=== PATIENT | female | born 1995 | race Two or more races ===

== ENCOUNTER 2017-02-07 18:18 | Inpatient (IN) | payer BC ==
[~2017-02-07] VITALS: Ht 157.5 cm; Wt 78.0 kg
[2017-02-07] MEDS ORDERED: MORPHINE SULFATE 4 MG/ML DISP.SYRIN. IV ONE (19:30)
[2017-02-07] MEDS ORDERED: KETOROLAC TROMETHAMINE 30 MG/ML INJ. IV ONE (19:30)
[2017-02-07 19:58] LABS: BASO # 0.1 x10^3/uL (0.0-0.2); BASO % 0 % (0-3); EOS % 1 % (0-3); HEMATOCRIT 41.8 % (36.0-47.0); HEMOGLOBIN 13.4 g/dL (12.0-15.5); LYMPH % 12 % (24-48); MEAN CORPUSCULAR HEMOGLOBIN 27 pg (25-35); MEAN CORPUSCULAR HGB CONC 32 g/dL (31-37); MEAN CORPUSCULAR VOLUME 85 fL (79-100); MONO % 7 % (0-9); NEUT % 80 % (31-73); PLATELET COUNT 251 x10^3/uL (140-400); RED BLOOD COUNT 4.93 x10^6/uL (3.50-5.40); RED CELL DISTRIBUTION WIDTH 13.8 % (11.5-14.5); WHITE BLOOD COUNT 16.8 x10^3/uL (4.0-11.0)
[2017-02-07] MEDS ORDERED: CLINDAMYCIN 600MG PREMIX 50 ML IV ONE (20:00)
[2017-02-07 20:16] LABS: CALCIUM 9.4 mg/dL (8.5-10.1); CREATININE 0.6 mg/dL (0.6-1.0); GFR 123.9; POTASSIUM 3.7 mmol/L (3.5-5.1)
[2017-02-07 20:23] LABS: ALBUMIN/GLOBULIN RATIO 0.9 (1.0-1.7); TOTAL BILIRUBIN 0.4 mg/dL (0.2-1.0); TOTAL PROTEIN 8.4 g/dL (6.4-8.2)
[2017-02-07 20:39] LABS: % EOS 1 % (0-5)
[2017-02-07 20:41] LABS: ANISOCYTOSIS SLIGHT; OVALOCYTES FEW; PLT ESTIMATE ADEQUATE (ADEQUATE); POLYCHROMASIA SLIGHT
[2017-02-07] MEDS ORDERED: MORPHINE SULFATE 4 MG/ML DISP.SYRIN. IV/SQ PRN (20:45)
[2017-02-07] MEDS ORDERED: ONDANSETRON PF 4 MG/2 ML VIAL. IV PRN ×2 (20:45→23:30)
--- NOTE | 2017-02-07 20:47 | PHYS DOC ---
Past Medical History Past Medical History: Other Additional Past Medical Histor: SPORTS INDUCED ASTHMA Past Surgical History: No Surgical History Alcohol Use: Occasionally Drug Use: None Adult General Chief Complaint Chief Complaint: ABSCESS HPI HPI Patient is a 21 year old female presents emergency department stating that she has having tenderness on her right breast that started yesterday. She states today the area has become more sensitive. She denies any drainage or discharge. She does state there is areas that her heart on the breast with a large amount of redness. Patient has not taken anything for pain or discomfort. She denies any fever although her temperature here in the emergency department is 100.2. She denies any nausea or vomiting. Review of Systems Review of Systems Constitutional: Denies fever or chills [] Eyes: Denies change in visual acuity, redness, or eye pain [] HENT: Denies nasal congestion or sore throat [] Respiratory: Denies cough or shortness of breath [] Cardiovascular: No additional information not addressed in HPI [] GI: Denies abdominal pain, nausea, vomiting, bloody stools or diarrhea [] : Denies dysuria or hematuria [] Musculoskeletal: Denies back pain or joint pain [] Integument: Denies rash or skin lesions. Right breast redness and tenderness Neurologic: Denies headache, focal weakness or sensory changes [] Current Medications Current Medications Current Medications Medications (Trade) Dose Ordered Sig/Yonathan Start Time Stop Time Status Last Admin Dose Admin Clindamycin Phosphate (Cleocin 600 Mg Premix) 50 ml @ 100 mls/hr Q8HRS 02/07/17 22:00 UNV Ketorolac Tromethamine (Toradol) 30 mg 1X ONCE 02/07/17 19:30 02/07/17 19:31 DC 02/07/17 19:56 30 MG Morphine Sulfate 4 mg PRN Q15MIN PRN 02/07/17 20:45 02/08/17 20:44 Morphine Sulfate 4 mg 4 mg PRN Q2HR PRN 02/07/17 20:45 02/08/17 20:44 Ondansetron HCl (Zofran) 4 mg PRN Q8HRS PRN 02/07/17 20:45 02/08/17 20:44 Sodium Chloride 1,000 ml @ 125 mls/hr Q8H 02/07/17 20:38 02/08/17 20:37 Allergies Allergies Allergies Coded Allergies Type Severity Reaction Last Updated Verified No Known Drug Allergies 02/07/17 No Physical Exam Physical Exam Constitutional: Well developed, well nourished, no acute distress, non-toxic appearance. [] HENT: Normocephalic, atraumatic, bilateral external ears normal, oropharynx moist, no oral exudates, nose normal. [] Eyes: PERRLA, EOMI, conjunctiva normal, no discharge. [] Neck: Normal range of motion, no tenderness, supple, no stridor. [] Cardiovascular:Heart rate regular rhythm, no murmur [] Lungs & Thorax: Bilateral breath sounds clear to auscultation [] Skin: Warm, dry, no erythema, no rash. Right breast tenderness with redness noted on the outer part of the breast area. Tenderness with no induration noted on the medial side of the right medial areola. Back: No tenderness Extremities: No tenderness, no cyanosis, no clubbing, ROM intact, no edema. [] Neurologic: Alert and oriented X 3, normal motor function, normal sensory function, no focal deficits noted. [] Psychologic: Affect normal, judgement normal, mood normal. [] Current Patient Data Vital Signs Vital Signs Date Time Temp Pulse Resp B/P Pulse Ox O2 Delivery O2 Flow Rate FiO2 02/07/17 18:40 100.2 89 24 117/70 100 Room Air 100.2 Lab Values Laboratory Tests Test 02/07/17 18:33 02/07/17 19:40 02/07/17 19:45 POC Urine HCG, Qualitative Hcg negative (Negative) C-Reactive Protein, Quantitative 68.0mg/L (0-3.3) H White Blood Count 16.8x10^3/uL (4.0-11.0) H Red Blood Count 4.93x10^6/uL (3.50-5.40) Hemoglobin 13.4g/dL (12.0-15.5) Hematocrit 41.8% (36.0-47.0) Mean Corpuscular Volume 85fL (79-100) Mean Corpuscular Hemoglobin 27pg (25-35) Mean Corpuscular Hemoglobin Concent 32g/dL (31-37) Red Cell Distribution Width 13.8% (11.5-14.5) Platelet Count 251x10^3/uL (140-400) Neutrophils (%) (Auto) 80% (31-73) H Lymphocytes (%) (Auto) 12% (24-48) L Monocytes (%) (Auto) 7% (0-9) Eosinophils (%) (Auto) 1% (0-3) Basophils (%) (Auto) 0% (0-3) Neutrophils # (Auto) 13.4x10^3uL (1.8-7.7) H Lymphocytes # (Auto) 2.0x10^3/uL (1.0-4.8) Monocytes # (Auto) 1.2x10^3/uL (0.0-1.1) H Eosinophils # (Auto) 0.1x10^3/uL (0.0-0.7) Basophils # (Auto) 0.1x10^3/uL (0.0-0.2) Segmented Neutrophils % 80% (35-66) H Lymphocytes % 10% (24-48) L Monocytes % 6% (0-10) Eosinophils % 1% (0-5) Metamyelocytes % 3% (0-0) H Platelet Estimate Adequate (ADEQUATE) Polychromasia Slight Anisocytosis Slight Ovalocytes Few Sodium Level 139mmol/L (136-145) Potassium Level 3.7mmol/L (3.5-5.1) Chloride Level 101mmol/L (98-107) Carbon Dioxide Level 26mmol/L (21-32) Anion Gap 12 (6-14) Blood Urea Nitrogen 7mg/dL (7-20) Creatinine 0.6mg/dL (0.6-1.0) Estimated GFR (Cockcroft-Gault) 123.9 BUN/Creatinine Ratio 12 (6-20) Glucose Level 95mg/dL (70-99) Calcium Level 9.4mg/dL (8.5-10.1) Total Bilirubin 0.4mg/dL (0.2-1.0) Aspartate Amino Transferase (AST) 57U/L (15-37) H Alanine Aminotransferase (ALT) 72U/L (14-59) H Alkaline Phosphatase 109U/L (46-116) Total Protein 8.4g/dL (6.4-8.2) H Albumin 4.0g/dL (3.4-5.0) Albumin/Globulin Ratio 0.9 (1.0-1.7) L Laboratory Tests 02/07/17 19:45 Laboratory Tests 02/07/17 19:45 EKG EKG [] Radiology/Procedures Radiology/Procedures [] Course & Med Decision Making Course & Med Decision Making Pertinent Labs and Imaging studies reviewed. (See chart for details) She was also noted to have nipple rings in which there is no drainage or discharge noted from the site. [address] Pham in regards to patient's admission. He has requested to lab to be obtained ESR and CRP. Does have been added to the labs that are in the lab. Patient will be admitted into the hospital surgery consult has been obtained. Orders have been written. She is aware of admission. She has received one dose of clindamycin here in the emergency department. Dr. Vero luz is aware of this. Patient will continue with clindamycin upon admission. She has been provided with morphine for pain and discomfort. She still continues to have pain at this time. She'll be provided more morphine before being sent to the floor. [] Dragon Disclaimer Dragon Disclaimer This electronic medical record was generated, in whole or in part, using a voice recognition dictation system. Departure Departure Impression: Primary Impression: Cellulitis and abscess of other specified site Disposition: ADMITTED INPATIENT Admitting Physician: Lauro Pham Referrals: NO PCP (PCP) ANT PARKINSON APRN Feb 07, 2017 20:47
[2017-02-07] MEDS: IV NORMAL SALINE 1000ML BAG 1,000 ML IV SCH (21:18)
--- NOTE | 2017-02-07 21:36 | PDOC1 ---
History and Physical Past Medical History Past Medical History sports induce asthma Social History Smoke: No ALCOHOL: none Drugs: None Current Problem List Problem List Problems Medical Problems: (1) Cellulitis and abscess of other specified site Status: Acute Current Medications Current Medications Current Medications Medications (Trade) Dose Ordered Sig/Yonathan Start Time Stop Time Status Last Admin Dose Admin Clindamycin Phosphate (Cleocin 600 Mg Premix) 50 ml @ 100 mls/hr Q8HRS 02/08/17 06:00 Ketorolac Tromethamine (Toradol) 30 mg 1X ONCE 02/07/17 19:30 02/07/17 19:31 DC 02/07/17 19:56 30 MG Morphine Sulfate 4 mg PRN Q15MIN PRN 02/07/17 20:45 02/08/17 20:44 02/07/17 21:17 4 MG Morphine Sulfate 4 mg 4 mg PRN Q2HR PRN 02/07/17 20:45 02/08/17 20:44 Ondansetron HCl (Zofran) 4 mg PRN Q8HRS PRN 02/07/17 20:45 02/08/17 20:44 02/07/17 21:17 4 MG Sodium Chloride 1,000 ml @ 125 mls/hr Q8H 02/07/17 20:38 02/08/17 20:37 02/07/17 21:18 125 MLS/HR Allergies Allergies Allergies Coded Allergies Type Severity Reaction Last Updated Verified No Known Drug Allergies 02/07/17 No ROS Review of System CONSTITUTIONAL: Pain and swelling of righ breast, EYES: No recent changes SKIN: No rash or itching CARDIOVASCULAR: No chest pain, syncope, palpitations, or edema RESPIRATORY: No SOB or cough GASTROINTESTINAL: No nausea, vomiting or abdominal pain NEUROLOGICAL: No headaches or weakness ENDOCRINE: No cold or heat intolerance GENITOURINARY: No urgency or frequency of urination MUSCULOSKELETAL: No back pain or joint pain LYMPHATICS: No enlarged lymph nodes PSYCHIATRIC: No anxiety or depression Physical Exam Physical Exam GEN.: No apparent distress. Alert and oriented. HEENT: Head is normocephalic, atraumatic NECK: Supple. LUNGS: Clear to auscultation. HEART: RRR, S1, S2 present. Peripheral pulses intact ABDOMEN: Soft, nontender. Positive bowel sounds. EXTREMITIES: Without any cyanosis. NEUROLOGIC: Normal speech, normal tone PSYCHIATRIC: Normal affect, normal mood. SKIN: Right breast, upper Quad Areola is tender, erythematous, 3-4 cm Vitals Vitals Vital Signs Date Time Temp Pulse Resp B/P Pulse Ox O2 Delivery O2 Flow Rate FiO2 02/07/17 18:40 100.2 89 24 117/70 100 Room Air 100.2 Labs Labs Laboratory Tests Test 02/07/17 18:33 02/07/17 19:40 02/07/17 19:45 Bedside Urine HCG, Qualitative Hcg negative (Negative) C-Reactive Protein, Quantitative 68.0mg/L (0-3.3) White Blood Count 16.8x10^3/uL (4.0-11.0) Red Blood Count 4.93x10^6/uL (3.50-5.40) Hemoglobin 13.4g/dL (12.0-15.5) Hematocrit 41.8% (36.0-47.0) Mean Corpuscular Volume 85fL (79-100) Mean Corpuscular Hemoglobin 27pg (25-35) Mean Corpuscular Hemoglobin Concent 32g/dL (31-37) Red Cell Distribution Width 13.8% (11.5-14.5) Platelet Count 251x10^3/uL (140-400) Neutrophils (%) (Auto) 80% (31-73) Lymphocytes (%) (Auto) 12% (24-48) Monocytes (%) (Auto) 7% (0-9) Eosinophils (%) (Auto) 1% (0-3) Basophils (%) (Auto) 0% (0-3) Neutrophils # (Auto) 13.4x10^3uL (1.8-7.7) Lymphocytes # (Auto) 2.0x10^3/uL (1.0-4.8) Monocytes # (Auto) 1.2x10^3/uL (0.0-1.1) Eosinophils # (Auto) 0.1x10^3/uL (0.0-0.7) Basophils # (Auto) 0.1x10^3/uL (0.0-0.2) Segmented Neutrophils % 80% (35-66) Lymphocytes % 10% (24-48) Monocytes % 6% (0-10) Eosinophils % 1% (0-5) Metamyelocytes % 3% (0-0) Platelet Estimate Adequate (ADEQUATE) Polychromasia Slight Anisocytosis Slight Ovalocytes Few Sodium Level 139mmol/L (136-145) Potassium Level 3.7mmol/L (3.5-5.1) Chloride Level 101mmol/L (98-107) Carbon Dioxide Level 26mmol/L (21-32) Anion Gap 12 (6-14) Blood Urea Nitrogen 7mg/dL (7-20) Creatinine 0.6mg/dL (0.6-1.0) Estimated GFR (Cockcroft-Gault) 123.9 BUN/Creatinine Ratio 12 (6-20) Glucose Level 95mg/dL (70-99) Calcium Level 9.4mg/dL (8.5-10.1) Total Bilirubin 0.4mg/dL (0.2-1.0) Aspartate Amino Transf (AST/SGOT) 57U/L (15-37) Alanine Aminotransferase (ALT/SGPT) 72U/L (14-59) Alkaline Phosphatase 109U/L (46-116) Total Protein 8.4g/dL (6.4-8.2) Albumin 4.0g/dL (3.4-5.0) Albumin/Globulin Ratio 0.9 (1.0-1.7) Laboratory Tests Test 02/07/17 18:33 02/07/17 19:40 02/07/17 19:45 Bedside Urine HCG, Qualitative Hcg negative (Negative) C-Reactive Protein, Quantitative 68.0mg/L (0-3.3) White Blood Count 16.8x10^3/uL (4.0-11.0) Red Blood Count 4.93x10^6/uL (3.50-5.40) Hemoglobin 13.4g/dL (12.0-15.5) Hematocrit 41.8% (36.0-47.0) Mean Corpuscular Volume 85fL (79-100) Mean Corpuscular Hemoglobin 27pg (25-35) Mean Corpuscular Hemoglobin Concent 32g/dL (31-37) Red Cell Distribution Width 13.8% (11.5-14.5) Platelet Count 251x10^3/uL (140-400) Neutrophils (%) (Auto) 80% (31-73) Lymphocytes (%) (Auto) 12% (24-48) Monocytes (%) (Auto) 7% (0-9) Eosinophils (%) (Auto) 1% (0-3) Basophils (%) (Auto) 0% (0-3) Neutrophils # (Auto) 13.4x10^3uL (1.8-7.7) Lymphocytes # (Auto) 2.0x10^3/uL (1.0-4.8) Monocytes # (Auto) 1.2x10^3/uL (0.0-1.1) Eosinophils # (Auto) 0.1x10^3/uL (0.0-0.7) Basophils # (Auto) 0.1x10^3/uL (0.0-0.2) Segmented Neutrophils % 80% (35-66) Lymphocytes % 10% (24-48) Monocytes % 6% (0-10) Eosinophils % 1% (0-5) Metamyelocytes % 3% (0-0) Platelet Estimate Adequate (ADEQUATE) Polychromasia Slight Anisocytosis Slight Ovalocytes Few Sodium Level 139mmol/L (136-145) Potassium Level 3.7mmol/L (3.5-5.1) Chloride Level 101mmol/L (98-107) Carbon Dioxide Level 26mmol/L (21-32) Anion Gap 12 (6-14) Blood Urea Nitrogen 7mg/dL (7-20) Creatinine 0.6mg/dL (0.6-1.0) Estimated GFR (Cockcroft-Gault) 123.9 BUN/Creatinine Ratio 12 (6-20) Glucose Level 95mg/dL (70-99) Calcium Level 9.4mg/dL (8.5-10.1) Total Bilirubin 0.4mg/dL (0.2-1.0) Aspartate Amino Transf (AST/SGOT) 57U/L (15-37) Alanine Aminotransferase (ALT/SGPT) 72U/L (14-59) Alkaline Phosphatase 109U/L (46-116) Total Protein 8.4g/dL (6.4-8.2) Albumin 4.0g/dL (3.4-5.0) Albumin/Globulin Ratio 0.9 (1.0-1.7) VTE Prophylaxis Ordered VTE Prophylaxis Devices: No VTE Pharmacological Prophylaxi: No JONNIE GENAO MD Feb 07, 2017 21:36
[2017-02-07 23:00] VITALS: BP 106/63
[2017-02-07] MEDS: MORPHINE SULFATE 4 MG/ML DISP.SYRIN. IV PRN (23:18)
--- NOTE | 2017-02-07 23:20 | ACF ---
Admission Forms Criteria CELLULITIS Clinical Indications for Admission to Inpatient Care (Place 'X' for any and all applicable criteria): Admission is indicated for ANY ONE of the following(1)(2)(3)(4)(5): [ ]I. Limb-threatening infection [ ]II. High-risk comorbid condition as indicated by ANY ONE of the following: [ ]a) Uncontrolled diabetes (eg, HbA1c greater than 10% (0.1)) [ ]b) Cirrhosis [ ]c) Neutropenia [ ]d) Asplenia [ ]e) Immunosuppression [ ]f) Symptomatic heart failure [ ]III. Failure of outpatient therapy as indicated by ALL of the following: [ ]a) Progression or no improvement after adequate trial (minimum of 48 hours, with longer period for stable lower extremity infection) [ ]b) Adequate antibiotic regimen as indicated by use of ANY ONE of the following: [ ]i) First-generation cephalosporin (e.g., cephalexin) [ ]ii) Antistaphylococcal penicillin (e.g., dicloxacillin) [ ]iii) Penicillin-allergic patient regimen (clindamycin, extended-spectrum fluoroquinolone, or doxycycline) [ ]iv) Resistant organism (eg, methicillin-resistant Staphylococcus aureus) regimen (6) [ ]c) Outpatient intravenous therapy regimen is not appropriate due to ANY ONE of the following. (7)(8)(9)(10): [ ]i) It was tried and was not successful (eg, progression of infection). [ ]ii) It is not available or cannot be arranged in a clinically appropriate time frame (e.g., the next day). [ ]iii) Clinical presentation (eg, acuity of infection, rapidity of progression, confirmed or suspected bacteremia) is judged to require ALL of the following: [ ]1) Immediate initiation of intravenous therapy ( eg, cannot wait for next day) [ ]2) Intensity of patient monitoring and observation (eg, vital sign measurement, checks for infection progression) that cannot be provided at other than inpatient level of care [ ]IV. Mental status changes [ ]V. Bacteremia [ ]. Hemodynamic instability [ ]VII. Suspected necrotizing soft tissue infection (e.g., gas in tissue)(11)( 12) [ ]VIII. Orbital infection (13)(14) [ ]IX. Associated surgical procedure (e.g., abscess drainage, debridement) not amenable to outpatient, emergency department, or observation care [ ]X. Cutaneous gangrene [ ]XI. High fever (temperature greater than 39.5 degrees C (103.1 degrees F) (oral)) not responsive to outpatient, emergency department, or observation care therapy [X]XIII. Inpatient admission required rather than observation care (Also use Cellulitis: Observation Care as appropriate) because of ANY ONE of the following : [ ]a) Periorbital or perineal infection that is severe or worsening [ ]b) Severe pain requiring acute inpatient management [ ]c) IV fluid to replace significant ongoing (e.g., for over 24 hours) losses (greater than 3L/m2 per day) [ ]d) Compartment syndrome monitoring (17) [ ]e) Strict or protective (eg, laminar flow) isolation [ ]f) Urgent debridement or skin grafting [ ]g) Bone or joint debridement [ ]h) Immediate inpatient surgery [X]i) Other condition, treatment or monitoring requiring inpatient admission Extended stay beyond goal length of stay may be needed for (1)(18): [ ]a) Necrotizing soft tissue infection or fasciitis [ ]b) Gram-negative infection [ ]c) Methicillin-resistant Staphylococcal aureus (MRSA) infection [ ]d) Peripheral venous insufficiency with cellulitis [ ]e) Extensive edema [ ]f) Sepsis or continued Hemodynamic instability [ ]g) Continued high fever or mental status change [ ]h) Bacteremia [ ]i) Active serious comorbid conditions ( eg, heart failure, renal insufficiency) The original [email or web address] content created by [email or web address] has been revised. The portions of the content which have been revised are identified through the use of italic text or in bold, and [facility] has neither reviewed nor approved the modified material. All other unmodified content is copyright [facility] Please see references footnoted in the original [facility] edition 2016 Admission Criteria Met?: Yes PHYLICIA BENTLEY Feb 07, 2017 23:20
[2017-02-07] MEDS ORDERED: ACETAMINOPHEN 325 MG TABLET. PO PRN (23:30)
[2017-02-07] MEDS ORDERED: hydrALAZINE 20 MG/ML VIAL. IVP PRN (23:30)
[2017-02-07] MEDS ORDERED: ALBUTEROL SULFATE 2.5 MG/3 ML NEBU. NEB PRN (23:30)
[2017-02-08] MEDS: HYDROCODONE/APAP 5/325MG TABLET. PO PRN ×4 (00:54→20:31)
--- NOTE | 2017-02-08 01:45 | HP ---
ADMIT DATE: 02/07/2017 CHIEF COMPLAINT: Right breast pain. HISTORY OF PRESENT ILLNESS: A 21-year-old female patient with no significant medical history, who came to the ER with right breast pain and swelling, which started nearly for two days. Symptoms started yesterday morning, but this morning breast pain so high that she could not tolerate and which is very sensitive, also noted to have some erythema. Upon arrival to the ER, she has temperature spike around 100.2. She denies any discharge or trauma. She is not actively lactating. She is not breast feeding. She denies any prior history of surgeries on the breast. PAST MEDICAL HISTORY: asthma. FAMILY HISTORY: Unknown. PERSONAL HISTORY: No smoking, no alcohol, and no drug abuse. ALLERGIES: NKDA. REVIEW OF SYSTEMS: Please see my electronic H and P. PHYSICAL EXAMINATION: Please see my electronic H and P. LABORATORY FINDINGS: WBC 15.8, hemoglobin 13.4, MCV 85, and platelets 251. Segmented neutrophils ____ 40. Chemistry: Sodium is 139, potassium 3.7, chloride is 101, carbon dioxide 26, BUN 7, creatinine 0.6, and CRP 68. Urine test negative. ASSESSMENT AND PLAN: 1. Right breast outer quadrant areola abscess and cellulitis. The patient has been admitted for pain control and surgical consultation. We will continue IV clindamycin at this time with IV hydration. She is getting pain control with IV morphine. 2. General surgery consultation is placed for possible incision and drainage. 3. Monitor vitals. The patient continues to have temperature spikes, so we will order blood cultures. 4. Plan explained to the patient. JONNIE GENAO MD DR: NAM/jaycob JOB#: [id number] / [id number] JANN
[2017-02-08] MEDS: MORPHINE SULFATE 4 MG/ML DISP.SYRIN. IV PRN ×3 (02:28→08:02)
[2017-02-08 03:00] VITALS: BP 97/57
[2017-02-08] MEDS ORDERED: MORPHINE SULFATE 2 MG/ML DISP.SYRIN. IM ONE (05:00)
[2017-02-08] MEDS: CLINDAMYCIN 600MG PREMIX 50 ML IV SCH ×3 (05:25→21:29)
[2017-02-08] MEDS: IV NORMAL SALINE 1000ML BAG 1,000 ML IV SCH ×2 (05:25→12:38)
[2017-02-08 06:18] LABS: BASO % 0 % (0-3); EOS % 0 % (0-3); HEMATOCRIT 37.4 % (36.0-47.0); HEMOGLOBIN 12.2 g/dL (12.0-15.5); LYMPH % 21 % (24-48); MEAN CORPUSCULAR HEMOGLOBIN 27 pg (25-35); MEAN CORPUSCULAR HGB CONC 33 g/dL (31-37); MEAN CORPUSCULAR VOLUME 84 fL (79-100); MONO % 8 % (0-9); NEUT % 70 % (31-73); PLATELET COUNT 222 x10^3/uL (140-400); RED BLOOD COUNT 4.44 x10^6/uL (3.50-5.40); RED CELL DISTRIBUTION WIDTH 13.6 % (11.5-14.5); WHITE BLOOD COUNT 13.9 x10^3/uL (4.0-11.0)
[2017-02-08 06:32] LABS: CALCIUM 8.7 mg/dL (8.5-10.1); CREATININE 0.5 mg/dL (0.6-1.0); GFR 152.9
[2017-02-08 08:00] VITALS: BP 103/65
--- NOTE | 2017-02-08 08:40 | PDOC2 ---
CONSULT Date of Consult Date of Consult DATE: 02/08/17 TIME: 08:35 Reason for Consult Reason for Consult: Right breast pain and swelling Referring Physician Referring Physician: Vero Identification/Chief Complaint Chief Complaint Right breast pain Source Source: Patient History of Present Illness Reason for Visit: 21 yo female with 24 hour history of right breast pain, and swelling. Low grade fevers. Past Medical History Cardiovascular: No pertinent hx Pulmonary: Asthma GI: No pertinent hx Heme/Onc: No pertinent hx Hepatobiliary: No pertinent hx Psych: No pertinent hx Rheumatologic: No pertinent hx Infectious disease: No pertinent hx ENT: No pertinent hx Renal/: No pertinent hx Endocrine: No pertinent hx Dermatology: No pertinent hx Past Surgical History Past Surgical History: No pertinent history Family History Family History: No Significant Social History No ALCOHOL: none Drugs: None Current Problem List Problem List Problems Medical Problems: (1) Cellulitis and abscess of other specified site Status: Acute Current Medications Current Medications Current Medications Morphine Sulfate 4 mg 1X ONCE IV Last administered on 02/07/17 19:57; Start 02/07/17 at 19:30; Stop 02/07/17 at 19:31; Status DC Ketorolac Tromethamine 30 mg 30 mg 1X ONCE IV Last administered on 02/07/17 19:56; Start 02/07/17 at 19:30; Stop 02/07/17 at 19:31; Status DC Clindamycin Phosphate (Cleocin 600 Mg Premix) 50 ml @ 100 mls/hr 1X ONCE IV Last administered on 02/07/17 20:05; Start 02/07/17 at 20:00; Stop 02/07/17 at 20:29; Status DC Ondansetron HCl (Zofran) 4 mg PRN Q8HRS PRN IV NAUSEA/VOMITING Last administered on 02/07/17 21:17; Start 02/07/17 at 20:45; Stop 02/07/17 at 23:32 ; Status DC Morphine Sulfate 4 mg 4 mg PRN Q2HR PRN IV PAIN Last administered on 02/08/17 08:02; Start 02/07/17 at 20:45; Stop 02/08/17 at 20:44 Sodium Chloride 1,000 ml @ 125 mls/hr Q8H IV Last administered on 02/08/17 05: 25; Start 02/07/17 at 20:38; Stop 02/08/17 at 20:37 Clindamycin Phosphate (Cleocin 600 Mg Premix) 50 ml @ 100 mls/hr Q8HRS IV Last administered on 02/08/17 05:25; Start 02/08/17 at 06:00 Morphine Sulfate 4 mg PRN Q15MIN PRN IV/SQ PAIN GREATER THAN 3/10 Last administered on 02/07/17 21:17; Start 02/07/17 at 20:45; Stop 02/08/17 at 20:44 Acetaminophen (Tylenol) 325 mg PRN Q6HRS PRN PO MILD PAIN / TEMP; Start at 23:30 Acetaminophen/ Hydrocodone Bitart (Lortab 5/325) 1 tab PRN Q6HRS PRN PO MODERATE TO SEVERE PAIN Last administered on 02/08/17 00:54; Start 02/07/17 at 23:30 Hydralazine HCl (Apresoline) 10 mg PRN Q4HRS PRN IVP ELEVATED BP, SEE COMMENTS ; Start 02/07/17 at 23:30 Ondansetron HCl (Zofran) 4 mg PRN Q8HRS PRN IV NAUSEA/VOMITING; Start 02/07/17 at 23:30 Albuterol Sulfate (Ventolin Neb Soln) 2.5 mg PRN Q4HRS PRN NEB SHORTNESS OF BREATH; Start 02/07/17 at 23:30 Morphine Sulfate 1 mg 1X ONCE IM ; Start 02/08/17 at 05:00; Stop 02/08/17 at 05: 01; Status DC Allergies Allergies: Coded Allergies: No Known Drug Allergies (Unverified , 02/07/17) ROS Breast: Other (pain) Physical Exam General: Alert, Oriented X3, Cooperative, mild distress HEENT: Atraumatic, PERRLA, EOMI Lungs: Clear to auscultation, Normal air movement Heart: Regular rate, No murmurs Abdomen: Normal bowel sounds, Soft, No tenderness Extremities: No edema Skin: Other (right breast erythema TTP mass at the nipple with pierching) Psych/Mental Status: Mental status NL Vitals VITALS Vital Signs Date Time Temp Pulse Resp B/P Pulse Ox O2 Delivery O2 Flow Rate FiO2 02/08/17 08:02 96 Room Air 02/08/17 04:37 20 02/08/17 03:00 98.3 83 97/57 98.3 Labs Labs Laboratory Tests Test 02/07/17 18:33 02/07/17 19:40 02/07/17 19:45 02/08/17 05:20 Bedside Urine HCG, Qualitative Hcg negative (Negative) Erythrocyte Sedimentation Rate 40 (0-25) C-Reactive Protein, Quantitative 68.0mg/L (0-3.3) White Blood Count 16.8x10^3/uL (4.0-11.0) 13.9x10^3/uL (4.0-11.0) Red Blood Count 4.93x10^6/uL (3.50-5.40) 4.44x10^6/uL (3.50-5.40) Hemoglobin 13.4g/dL (12.0-15.5) 12.2g/dL (12.0-15.5) Hematocrit 41.8% (36.0-47.0) 37.4% (36.0-47.0) Mean Corpuscular Volume 85fL (79-100) 84fL (79-100) Mean Corpuscular Hemoglobin 27pg (25-35) 27pg (25-35) Mean Corpuscular Hemoglobin Concent 32g/dL (31-37) 33g/dL (31-37) Red Cell Distribution Width 13.8% (11.5-14.5) 13.6% (11.5-14.5) Platelet Count 251x10^3/uL (140-400) 222x10^3/uL (140-400) Neutrophils (%) (Auto) 80% (31-73) 70% (31-73) Lymphocytes (%) (Auto) 12% (24-48) 21% (24-48) Monocytes (%) (Auto) 7% (0-9) 8% (0-9) Eosinophils (%) (Auto) 1% (0-3) 0% (0-3) Basophils (%) (Auto) 0% (0-3) 0% (0-3) Neutrophils # (Auto) 13.4x10^3uL (1.8-7.7) 9.7x10^3uL (1.8-7.7) Lymphocytes # (Auto) 2.0x10^3/uL (1.0-4.8) 3.0x10^3/uL (1.0-4.8) Monocytes # (Auto) 1.2x10^3/uL (0.0-1.1) 1.1x10^3/uL (0.0-1.1) Eosinophils # (Auto) 0.1x10^3/uL (0.0-0.7) 0.1x10^3/uL (0.0-0.7) Basophils # (Auto) 0.1x10^3/uL (0.0-0.2) 0.0x10^3/uL (0.0-0.2) Segmented Neutrophils % 80% (35-66) Lymphocytes % 10% (24-48) Monocytes % 6% (0-10) Eosinophils % 1% (0-5) Metamyelocytes % 3% (0-0) Platelet Estimate Adequate (ADEQUATE) Polychromasia Slight Anisocytosis Slight Ovalocytes Few Sodium Level 139mmol/L (136-145) 142mmol/L (136-145) Potassium Level 3.7mmol/L (3.5-5.1) 4.0mmol/L (3.5-5.1) Chloride Level 101mmol/L (98-107) 106mmol/L (98-107) Carbon Dioxide Level 26mmol/L (21-32) 28mmol/L (21-32) Anion Gap 12 (6-14) 8 (6-14) Blood Urea Nitrogen 7mg/dL (7-20) 8mg/dL (7-20) Creatinine 0.6mg/dL (0.6-1.0) 0.5mg/dL (0.6-1.0) Estimated GFR (Cockcroft-Gault) 123.9 152.9 BUN/Creatinine Ratio 12 (6-20) Glucose Level 95mg/dL (70-99) 84mg/dL (70-99) Calcium Level 9.4mg/dL (8.5-10.1) 8.7mg/dL (8.5-10.1) Total Bilirubin 0.4mg/dL (0.2-1.0) Aspartate Amino Transf (AST/SGOT) 57U/L (15-37) Alanine Aminotransferase (ALT/SGPT) 72U/L (14-59) Alkaline Phosphatase 109U/L (46-116) Total Protein 8.4g/dL (6.4-8.2) Albumin 4.0g/dL (3.4-5.0) Albumin/Globulin Ratio 0.9 (1.0-1.7) Laboratory Tests Test 02/07/17 18:33 02/07/17 19:40 02/07/17 19:45 02/08/17 05:20 Bedside Urine HCG, Qualitative Hcg negative (Negative) Erythrocyte Sedimentation Rate 40 (0-25) C-Reactive Protein, Quantitative 68.0mg/L (0-3.3) White Blood Count 16.8x10^3/uL (4.0-11.0) 13.9x10^3/uL (4.0-11.0) Red Blood Count 4.93x10^6/uL (3.50-5.40) 4.44x10^6/uL (3.50-5.40) Hemoglobin 13.4g/dL (12.0-15.5) 12.2g/dL (12.0-15.5) Hematocrit 41.8% (36.0-47.0) 37.4% (36.0-47.0) Mean Corpuscular Volume 85fL (79-100) 84fL (79-100) Mean Corpuscular Hemoglobin 27pg (25-35) 27pg (25-35) Mean Corpuscular Hemoglobin Concent 32g/dL (31-37) 33g/dL (31-37) Red Cell Distribution Width 13.8% (11.5-14.5) 13.6% (11.5-14.5) Platelet Count 251x10^3/uL (140-400) 222x10^3/uL (140-400) Neutrophils (%) (Auto) 80% (31-73) 70% (31-73) Lymphocytes (%) (Auto) 12% (24-48) 21% (24-48) Monocytes (%) (Auto) 7% (0-9) 8% (0-9) Eosinophils (%) (Auto) 1% (0-3) 0% (0-3) Basophils (%) (Auto) 0% (0-3) 0% (0-3) Neutrophils # (Auto) 13.4x10^3uL (1.8-7.7) 9.7x10^3uL (1.8-7.7) Lymphocytes # (Auto) 2.0x10^3/uL (1.0-4.8) 3.0x10^3/uL (1.0-4.8) Monocytes # (Auto) 1.2x10^3/uL (0.0-1.1) 1.1x10^3/uL (0.0-1.1) Eosinophils # (Auto) 0.1x10^3/uL (0.0-0.7) 0.1x10^3/uL (0.0-0.7) Basophils # (Auto) 0.1x10^3/uL (0.0-0.2) 0.0x10^3/uL (0.0-0.2) Segmented Neutrophils % 80% (35-66) Lymphocytes % 10% (24-48) Monocytes % 6% (0-10) Eosinophils % 1% (0-5) Metamyelocytes % 3% (0-0) Platelet Estimate Adequate (ADEQUATE) Polychromasia Slight Anisocytosis Slight Ovalocytes Few Sodium Level 139mmol/L (136-145) 142mmol/L (136-145) Potassium Level 3.7mmol/L (3.5-5.1) 4.0mmol/L (3.5-5.1) Chloride Level 101mmol/L (98-107) 106mmol/L (98-107) Carbon Dioxide Level 26mmol/L (21-32) 28mmol/L (21-32) Anion Gap 12 (6-14) 8 (6-14) Blood Urea Nitrogen 7mg/dL (7-20) 8mg/dL (7-20) Creatinine 0.6mg/dL (0.6-1.0) 0.5mg/dL (0.6-1.0) Estimated GFR (Cockcroft-Gault) 123.9 152.9 BUN/Creatinine Ratio 12 (6-20) Glucose Level 95mg/dL (70-99) 84mg/dL (70-99) Calcium Level 9.4mg/dL (8.5-10.1) 8.7mg/dL (8.5-10.1) Total Bilirubin 0.4mg/dL (0.2-1.0) Aspartate Amino Transf (AST/SGOT) 57U/L (15-37) Alanine Aminotransferase (ALT/SGPT) 72U/L (14-59) Alkaline Phosphatase 109U/L (46-116) Total Protein 8.4g/dL (6.4-8.2) Albumin 4.0g/dL (3.4-5.0) Albumin/Globulin Ratio 0.9 (1.0-1.7) Assessment/Plan Assessment/Plan Right breast abscess Plan I&D CHENG TURNER MD Feb 08, 2017 08:39
[2017-02-08] MEDS ORDERED: IV RINGERS,LACTATED 1000ML 1,000 ML IV SCH (08:53)
[2017-02-08] MEDS ORDERED: ONDANSETRON PF 4 MG/2 ML VIAL. IV PRN (09:00)
[2017-02-08] MEDS ORDERED: LIDOCAINE 1% 1 ML SYRINGE. ID PRN (09:00)
[2017-02-08] MEDS ORDERED: HYDROMORPHONE 2 MG/ML VIAL. IV PRN (09:00)
[2017-02-08] MEDS ORDERED: PROCHLORPERAZINE 10 MG/2 ML VIAL. IV PRN (09:00)
[2017-02-08] MEDS ORDERED: MORPHINE SULFATE 2 MG/ML DISP.SYRIN. IV PRN ×2 (09:00→17:00)
[2017-02-08] MEDS ORDERED: FENTANYL PF 100 MCG/2 ML VIAL. IV PRN (09:00)
[2017-02-08] MEDS ORDERED: PROPOFOL 20 ML IV ONE (09:04)
[2017-02-08] MEDS ORDERED: DEXAMETHASONE SOD PHOS 20 MG/5 ML VIAL. ONE (09:05)
[2017-02-08] MEDS ORDERED: ONDANSETRON PF 4 MG/2 ML VIAL. ONE (09:05)
[2017-02-08] MEDS ORDERED: BUPIVACAINE-EPI 0.25%-1:200000 MPF 30 ML VIAL. ONE (09:05)
[2017-02-08] MEDS ORDERED: LIDOCAINE 2% 100 MG/5 ML SYRINGE. ONE (09:05)
[2017-02-08] MEDS ORDERED: MIDAZOLAM HCL/PF 2 MG/2 ML VIAL. ONE (09:20)
[2017-02-08] MEDS ORDERED: SEVOFLURANE 16 TO 30 MINUTES. IH ONE (09:47)
--- NOTE | 2017-02-08 09:56 | PDOC ---
BRIEF OPERATIVE NOTE Date: Feb 08, 2017 Pre-Op Diagnosis Right breast abscess Post-Op Diagnosis Same Procedure Performed I&D right breast Surgeon Miko Anesthesia Type: General Blood Loss 10ml Specimens Obtained Cultures Findings as above Complications None CHENG TURNER MD Feb 08, 2017 09:56
[2017-02-08] MEDS: FENTANYL PF 100 MCG/2 ML VIAL. IV PRN ×2 (10:11→10:22)
[2017-02-08 10:55] VITALS: BP 96/51
--- NOTE | 2017-02-08 11:25 | OP ---
DATE OF SURGERY: 02/08/2017 PREOPERATIVE DIAGNOSIS: Right breast abscess. POSTOPERATIVE DIAGNOSIS: Right breast abscess. PROCEDURE: Incision and drainage, right breast abscess. SURGEON: Mike Turner M.D. INDICATIONS: The patient is a 21-year-old female who ____ admitted to the hospital with right breast pain and swelling. Procedure of incision and drainage was explained to the patient in detail. Risks, benefits were also discussed including bleeding, infection. Alternatives of procedure were also discussed with the patient who seemed to understand and gave verbal and written consent to have the procedure performed. DESCRIPTION OF PROCEDURE: The patient was taken to the operating room and placed in the supine position, general anesthesia was initiated. Once the patient was asleep and intubated, breast was prepped and draped in usual sterile fashion using ChloraPrep. An area over the abscess was incised with 15 blade scalpel, cultures were taken. There was fair amount of purulent material expressed. The wound was irrigated with copious amounts of saline and then packed with quarter inch iodoform Nu Gauze. Dressed with 4 x 4's and Medipore tape. The patient was awakened, extubated in the operating room, taken to recovery in stable condition. All sponge, instrument counts listed as correct. Estimated blood loss 10 mL. MIKE TURNER MD DR: FATOU/[email or web address] JOB#: [id number] / [id number]
[2017-02-08 15:10] VITALS: BP 100/46
--- NOTE | 2017-02-08 15:34 | PDOC ---
PROGRESS NOTES Chief Complaint Chief Complaint Breast abscess ASSESSMENT AND PLAN: 1. Breast abscess: s/p I&D by Dr Crouch this AM. Wound care. clindamycin IV -> PO 2. Pain regimen: liberalize PO opiods in favor of IV morphine (as last resort) Vitals Vitals Vital Signs Date Time Temp Pulse Resp B/P Pulse Ox O2 Delivery O2 Flow Rate FiO2 02/08/17 12:37 95 Room Air 02/08/17 10:55 98.0 61 20 96/51 98.0 02/08/17 10:11 10.0 Physical Exam General: Alert, Oriented X3, Cooperative, No acute distress Heart: Regular rate, No murmurs Lungs: Clear Abdomen: Normal bowel sounds, Soft, No tenderness Extremities: No edema Skin: Other (R breast covered with Gauze, some blood visible) Labs LABS Laboratory Tests Test 02/07/17 18:33 02/07/17 19:40 02/07/17 19:45 02/08/17 05:20 Bedside Urine HCG, Qualitative Hcg negative (Negative) Erythrocyte Sedimentation Rate 40 (0-25) C-Reactive Protein, Quantitative 68.0mg/L (0-3.3) White Blood Count 16.8x10^3/uL (4.0-11.0) 13.9x10^3/uL (4.0-11.0) Red Blood Count 4.93x10^6/uL (3.50-5.40) 4.44x10^6/uL (3.50-5.40) Hemoglobin 13.4g/dL (12.0-15.5) 12.2g/dL (12.0-15.5) Hematocrit 41.8% (36.0-47.0) 37.4% (36.0-47.0) Mean Corpuscular Volume 85fL (79-100) 84fL (79-100) Mean Corpuscular Hemoglobin 27pg (25-35) 27pg (25-35) Mean Corpuscular Hemoglobin Concent 32g/dL (31-37) 33g/dL (31-37) Red Cell Distribution Width 13.8% (11.5-14.5) 13.6% (11.5-14.5) Platelet Count 251x10^3/uL (140-400) 222x10^3/uL (140-400) Neutrophils (%) (Auto) 80% (31-73) 70% (31-73) Lymphocytes (%) (Auto) 12% (24-48) 21% (24-48) Monocytes (%) (Auto) 7% (0-9) 8% (0-9) Eosinophils (%) (Auto) 1% (0-3) 0% (0-3) Basophils (%) (Auto) 0% (0-3) 0% (0-3) Neutrophils # (Auto) 13.4x10^3uL (1.8-7.7) 9.7x10^3uL (1.8-7.7) Lymphocytes # (Auto) 2.0x10^3/uL (1.0-4.8) 3.0x10^3/uL (1.0-4.8) Monocytes # (Auto) 1.2x10^3/uL (0.0-1.1) 1.1x10^3/uL (0.0-1.1) Eosinophils # (Auto) 0.1x10^3/uL (0.0-0.7) 0.1x10^3/uL (0.0-0.7) Basophils # (Auto) 0.1x10^3/uL (0.0-0.2) 0.0x10^3/uL (0.0-0.2) Segmented Neutrophils % 80% (35-66) Lymphocytes % 10% (24-48) Monocytes % 6% (0-10) Eosinophils % 1% (0-5) Metamyelocytes % 3% (0-0) Platelet Estimate Adequate (ADEQUATE) Polychromasia Slight Anisocytosis Slight Ovalocytes Few Sodium Level 139mmol/L (136-145) 142mmol/L (136-145) Potassium Level 3.7mmol/L (3.5-5.1) 4.0mmol/L (3.5-5.1) Chloride Level 101mmol/L (98-107) 106mmol/L (98-107) Carbon Dioxide Level 26mmol/L (21-32) 28mmol/L (21-32) Anion Gap 12 (6-14) 8 (6-14) Blood Urea Nitrogen 7mg/dL (7-20) 8mg/dL (7-20) Creatinine 0.6mg/dL (0.6-1.0) 0.5mg/dL (0.6-1.0) Estimated GFR (Cockcroft-Gault) 123.9 152.9 BUN/Creatinine Ratio 12 (6-20) Glucose Level 95mg/dL (70-99) 84mg/dL (70-99) Calcium Level 9.4mg/dL (8.5-10.1) 8.7mg/dL (8.5-10.1) Total Bilirubin 0.4mg/dL (0.2-1.0) Aspartate Amino Transf (AST/SGOT) 57U/L (15-37) Alanine Aminotransferase (ALT/SGPT) 72U/L (14-59) Alkaline Phosphatase 109U/L (46-116) Total Protein 8.4g/dL (6.4-8.2) Albumin 4.0g/dL (3.4-5.0) Albumin/Globulin Ratio 0.9 (1.0-1.7) ANDERSON REILLY MD Feb 08, 2017 15:34
[2017-02-08 19:24] VITALS: BP 110/60
[2017-02-08 23:35] VITALS: BP 105/64
[2017-02-09] MEDS: HYDROCODONE/APAP 5/325MG TABLET. PO PRN ×6 (00:35→23:16)
[2017-02-09] MEDS: CLINDAMYCIN 600MG PREMIX 50 ML IV SCH ×3 (04:39→21:09)
[2017-02-09 04:49] LABS: BASO % 1 % (0-3); EOS % 1 % (0-3); HEMATOCRIT 39.2 % (36.0-47.0); HEMOGLOBIN 12.5 g/dL (12.0-15.5); LYMPH % 28 % (24-48); MEAN CORPUSCULAR HEMOGLOBIN 27 pg (25-35); MEAN CORPUSCULAR HGB CONC 32 g/dL (31-37); MEAN CORPUSCULAR VOLUME 86 fL (79-100); MONO % 8 % (0-9); NEUT % 62 % (31-73); PLATELET COUNT 229 x10^3/uL (140-400); RED BLOOD COUNT 4.58 x10^6/uL (3.50-5.40); RED CELL DISTRIBUTION WIDTH 13.7 % (11.5-14.5); WHITE BLOOD COUNT 10.9 x10^3/uL (4.0-11.0)
[2017-02-09 07:40] VITALS: BP 107/56
--- NOTE | 2017-02-09 09:02 | PDOC ---
SURGICAL PROGRESS NOTE Subjective Doing well, less pain, afebrile Vital Signs Vital Signs Date Time Temp Pulse Resp B/P Pulse Ox O2 Delivery O2 Flow Rate FiO2 02/09/17 08:40 99 Room Air 02/09/17 07:40 97.9 71 20 107/56 97.9 02/08/17 10:11 10.0 I&O Intake and Output 02/09/17 07:00 Intake Total 2060 ml Output Total 10 ml Balance 2050 ml Intake Oral 960 ml IV Total 1100 ml Output Estimated Blood Loss 10 ml # Voids 2 PATIENT HAS A OCONNELL: No General: Alert, Oriented X3, Cooperative, mild distress Skin: Other (Dressing intact) Labs Laboratory Tests Test 02/07/17 18:33 02/07/17 19:40 02/07/17 19:45 02/08/17 05:20 Bedside Urine HCG, Qualitative Hcg negative (Negative) Erythrocyte Sedimentation Rate 40 (0-25) C-Reactive Protein, Quantitative 68.0mg/L (0-3.3) White Blood Count 16.8x10^3/uL (4.0-11.0) 13.9x10^3/uL (4.0-11.0) Red Blood Count 4.93x10^6/uL (3.50-5.40) 4.44x10^6/uL (3.50-5.40) Hemoglobin 13.4g/dL (12.0-15.5) 12.2g/dL (12.0-15.5) Hematocrit 41.8% (36.0-47.0) 37.4% (36.0-47.0) Mean Corpuscular Volume 85fL (79-100) 84fL (79-100) Mean Corpuscular Hemoglobin 27pg (25-35) 27pg (25-35) Mean Corpuscular Hemoglobin Concent 32g/dL (31-37) 33g/dL (31-37) Red Cell Distribution Width 13.8% (11.5-14.5) 13.6% (11.5-14.5) Platelet Count 251x10^3/uL (140-400) 222x10^3/uL (140-400) Neutrophils (%) (Auto) 80% (31-73) 70% (31-73) Lymphocytes (%) (Auto) 12% (24-48) 21% (24-48) Monocytes (%) (Auto) 7% (0-9) 8% (0-9) Eosinophils (%) (Auto) 1% (0-3) 0% (0-3) Basophils (%) (Auto) 0% (0-3) 0% (0-3) Neutrophils # (Auto) 13.4x10^3uL (1.8-7.7) 9.7x10^3uL (1.8-7.7) Lymphocytes # (Auto) 2.0x10^3/uL (1.0-4.8) 3.0x10^3/uL (1.0-4.8) Monocytes # (Auto) 1.2x10^3/uL (0.0-1.1) 1.1x10^3/uL (0.0-1.1) Eosinophils # (Auto) 0.1x10^3/uL (0.0-0.7) 0.1x10^3/uL (0.0-0.7) Basophils # (Auto) 0.1x10^3/uL (0.0-0.2) 0.0x10^3/uL (0.0-0.2) Segmented Neutrophils % 80% (35-66) Lymphocytes % 10% (24-48) Monocytes % 6% (0-10) Eosinophils % 1% (0-5) Metamyelocytes % 3% (0-0) Platelet Estimate Adequate (ADEQUATE) Polychromasia Slight Anisocytosis Slight Ovalocytes Few Sodium Level 139mmol/L (136-145) 142mmol/L (136-145) Potassium Level 3.7mmol/L (3.5-5.1) 4.0mmol/L (3.5-5.1) Chloride Level 101mmol/L (98-107) 106mmol/L (98-107) Carbon Dioxide Level 26mmol/L (21-32) 28mmol/L (21-32) Anion Gap 12 (6-14) 8 (6-14) Blood Urea Nitrogen 7mg/dL (7-20) 8mg/dL (7-20) Creatinine 0.6mg/dL (0.6-1.0) 0.5mg/dL (0.6-1.0) Estimated GFR (Cockcroft-Gault) 123.9 152.9 BUN/Creatinine Ratio 12 (6-20) Glucose Level 95mg/dL (70-99) 84mg/dL (70-99) Calcium Level 9.4mg/dL (8.5-10.1) 8.7mg/dL (8.5-10.1) Total Bilirubin 0.4mg/dL (0.2-1.0) Aspartate Amino Transf (AST/SGOT) 57U/L (15-37) Alanine Aminotransferase (ALT/SGPT) 72U/L (14-59) Alkaline Phosphatase 109U/L (46-116) Total Protein 8.4g/dL (6.4-8.2) Albumin 4.0g/dL (3.4-5.0) Albumin/Globulin Ratio 0.9 (1.0-1.7) Test 02/09/17 04:25 White Blood Count 10.9x10^3/uL (4.0-11.0) Red Blood Count 4.58x10^6/uL (3.50-5.40) Hemoglobin 12.5g/dL (12.0-15.5) Hematocrit 39.2% (36.0-47.0) Mean Corpuscular Volume 86fL (79-100) Mean Corpuscular Hemoglobin 27pg (25-35) Mean Corpuscular Hemoglobin Concent 32g/dL (31-37) Red Cell Distribution Width 13.7% (11.5-14.5) Platelet Count 229x10^3/uL (140-400) Neutrophils (%) (Auto) 62% (31-73) Lymphocytes (%) (Auto) 28% (24-48) Monocytes (%) (Auto) 8% (0-9) Eosinophils (%) (Auto) 1% (0-3) Basophils (%) (Auto) 1% (0-3) Neutrophils # (Auto) 6.8x10^3uL (1.8-7.7) Lymphocytes # (Auto) 3.0x10^3/uL (1.0-4.8) Monocytes # (Auto) 0.9x10^3/uL (0.0-1.1) Eosinophils # (Auto) 0.1x10^3/uL (0.0-0.7) Basophils # (Auto) 0.0x10^3/uL (0.0-0.2) Laboratory Tests Test 02/09/17 04:25 White Blood Count 10.9x10^3/uL (4.0-11.0) Red Blood Count 4.58x10^6/uL (3.50-5.40) Hemoglobin 12.5g/dL (12.0-15.5) Hematocrit 39.2% (36.0-47.0) Mean Corpuscular Volume 86fL (79-100) Mean Corpuscular Hemoglobin 27pg (25-35) Mean Corpuscular Hemoglobin Concent 32g/dL (31-37) Red Cell Distribution Width 13.7% (11.5-14.5) Platelet Count 229x10^3/uL (140-400) Neutrophils (%) (Auto) 62% (31-73) Lymphocytes (%) (Auto) 28% (24-48) Monocytes (%) (Auto) 8% (0-9) Eosinophils (%) (Auto) 1% (0-3) Basophils (%) (Auto) 1% (0-3) Neutrophils # (Auto) 6.8x10^3uL (1.8-7.7) Lymphocytes # (Auto) 3.0x10^3/uL (1.0-4.8) Monocytes # (Auto) 0.9x10^3/uL (0.0-1.1) Eosinophils # (Auto) 0.1x10^3/uL (0.0-0.7) Basophils # (Auto) 0.0x10^3/uL (0.0-0.2) Problem List Problems Medical Problems: (1) Cellulitis and abscess of other specified site Status: Acute Assessment/Plan s/p i&d right breast abscess Improved wbc and afebrile Packing change today then OK to D/C from surgical point of view with local wound care Problems: CHENG TURNER MD Feb 09, 2017 9:02 am
[2017-02-09 11:05] VITALS: BP 106/68
--- NOTE | 2017-02-09 11:15 | PDOC ---
PROGRESS NOTES Chief Complaint Chief Complaint Breast abscess POD #1 s/p R breast I&D Exercise-induced asthma History of Present Illness History of Present Illness Patient seen and evaluated at bedside. POD#1 s/p I&D. No acute events overnight. Patient reports feeling well this AM. She still c/o pain around the incision site, but managed with medications. Pt is afebrile and is tolerating PO. Discuss case with RN; will change packing this AM. Questions sought and answered. Vitals Vitals Vital Signs Date Time Temp Pulse Resp B/P Pulse Ox O2 Delivery O2 Flow Rate FiO2 02/09/17 10:33 99 Room Air 02/09/17 07:40 97.9 71 20 107/56 97.9 02/08/17 10:11 10.0 Physical Exam General: Alert, Oriented X3, Cooperative, No acute distress Heart: Regular rate, No murmurs Lungs: Clear, Other (negative accessory muscle use. ) Abdomen: Normal bowel sounds, Soft, No tenderness Extremities: No clubbing, No cyanosis, No edema Skin: Other (Dressing & packing intact to R Breast. ) Labs LABS Laboratory Tests Test 02/09/17 04:25 White Blood Count 10.9x10^3/uL (4.0-11.0) Red Blood Count 4.58x10^6/uL (3.50-5.40) Hemoglobin 12.5g/dL (12.0-15.5) Hematocrit 39.2% (36.0-47.0) Mean Corpuscular Volume 86fL (79-100) Mean Corpuscular Hemoglobin 27pg (25-35) Mean Corpuscular Hemoglobin Concent 32g/dL (31-37) Red Cell Distribution Width 13.7% (11.5-14.5) Platelet Count 229x10^3/uL (140-400) Neutrophils (%) (Auto) 62% (31-73) Lymphocytes (%) (Auto) 28% (24-48) Monocytes (%) (Auto) 8% (0-9) Eosinophils (%) (Auto) 1% (0-3) Basophils (%) (Auto) 1% (0-3) Neutrophils # (Auto) 6.8x10^3uL (1.8-7.7) Lymphocytes # (Auto) 3.0x10^3/uL (1.0-4.8) Monocytes # (Auto) 0.9x10^3/uL (0.0-1.1) Eosinophils # (Auto) 0.1x10^3/uL (0.0-0.7) Basophils # (Auto) 0.0x10^3/uL (0.0-0.2) Review of Systems Review of Systems (+) R breast pain, along incision site (+) constipation Denies fever/chills, chest pain, shortness of breath, abdominal pain, or n/v/d. Assessment and Plan Assessmemt and Plan Problems Medical Problems: (1) Cellulitis and abscess of other specified site Status: Acute Assessment: 1.) R breast Abscess - POD#1 s/p I&D 2.) exercise induced asthma 3.) constipation Plan: - continue IV clindamycin, switch to PO upon d/c - f/u on cultures. - wound care with packing change - Surgery consult, recommendations appreciated - ordering magnesium citrate - Pain management PRN - probable discharge if agreeable with surgery. f/u with surgery and/or pcp as outpatient. Problems: Comment Review of Relevant I have reviewed the following items jose r (where applicable) has been applied. Labs Laboratory Tests Test 02/07/17 18:33 02/07/17 19:40 02/07/17 19:45 02/08/17 05:20 Bedside Urine HCG, Qualitative Hcg negative (Negative) Erythrocyte Sedimentation Rate 40 (0-25) C-Reactive Protein, Quantitative 68.0mg/L (0-3.3) White Blood Count 16.8x10^3/uL (4.0-11.0) 13.9x10^3/uL (4.0-11.0) Red Blood Count 4.93x10^6/uL (3.50-5.40) 4.44x10^6/uL (3.50-5.40) Hemoglobin 13.4g/dL (12.0-15.5) 12.2g/dL (12.0-15.5) Hematocrit 41.8% (36.0-47.0) 37.4% (36.0-47.0) Mean Corpuscular Volume 85fL (79-100) 84fL (79-100) Mean Corpuscular Hemoglobin 27pg (25-35) 27pg (25-35) Mean Corpuscular Hemoglobin Concent 32g/dL (31-37) 33g/dL (31-37) Red Cell Distribution Width 13.8% (11.5-14.5) 13.6% (11.5-14.5) Platelet Count 251x10^3/uL (140-400) 222x10^3/uL (140-400) Neutrophils (%) (Auto) 80% (31-73) 70% (31-73) Lymphocytes (%) (Auto) 12% (24-48) 21% (24-48) Monocytes (%) (Auto) 7% (0-9) 8% (0-9) Eosinophils (%) (Auto) 1% (0-3) 0% (0-3) Basophils (%) (Auto) 0% (0-3) 0% (0-3) Neutrophils # (Auto) 13.4x10^3uL (1.8-7.7) 9.7x10^3uL (1.8-7.7) Lymphocytes # (Auto) 2.0x10^3/uL (1.0-4.8) 3.0x10^3/uL (1.0-4.8) Monocytes # (Auto) 1.2x10^3/uL (0.0-1.1) 1.1x10^3/uL (0.0-1.1) Eosinophils # (Auto) 0.1x10^3/uL (0.0-0.7) 0.1x10^3/uL (0.0-0.7) Basophils # (Auto) 0.1x10^3/uL (0.0-0.2) 0.0x10^3/uL (0.0-0.2) Segmented Neutrophils % 80% (35-66) Lymphocytes % 10% (24-48) Monocytes % 6% (0-10) Eosinophils % 1% (0-5) Metamyelocytes % 3% (0-0) Platelet Estimate Adequate (ADEQUATE) Polychromasia Slight Anisocytosis Slight Ovalocytes Few Sodium Level 139mmol/L (136-145) 142mmol/L (136-145) Potassium Level 3.7mmol/L (3.5-5.1) 4.0mmol/L (3.5-5.1) Chloride Level 101mmol/L (98-107) 106mmol/L (98-107) Carbon Dioxide Level 26mmol/L (21-32) 28mmol/L (21-32) Anion Gap 12 (6-14) 8 (6-14) Blood Urea Nitrogen 7mg/dL (7-20) 8mg/dL (7-20) Creatinine 0.6mg/dL (0.6-1.0) 0.5mg/dL (0.6-1.0) Estimated GFR (Cockcroft-Gault) 123.9 152.9 BUN/Creatinine Ratio 12 (6-20) Glucose Level 95mg/dL (70-99) 84mg/dL (70-99) Calcium Level 9.4mg/dL (8.5-10.1) 8.7mg/dL (8.5-10.1) Total Bilirubin 0.4mg/dL (0.2-1.0) Aspartate Amino Transf (AST/SGOT) 57U/L (15-37) Alanine Aminotransferase (ALT/SGPT) 72U/L (14-59) Alkaline Phosphatase 109U/L (46-116) Total Protein 8.4g/dL (6.4-8.2) Albumin 4.0g/dL (3.4-5.0) Albumin/Globulin Ratio 0.9 (1.0-1.7) Test 02/09/17 04:25 White Blood Count 10.9x10^3/uL (4.0-11.0) Red Blood Count 4.58x10^6/uL (3.50-5.40) Hemoglobin 12.5g/dL (12.0-15.5) Hematocrit 39.2% (36.0-47.0) Mean Corpuscular Volume 86fL (79-100) Mean Corpuscular Hemoglobin 27pg (25-35) Mean Corpuscular Hemoglobin Concent 32g/dL (31-37) Red Cell Distribution Width 13.7% (11.5-14.5) Platelet Count 229x10^3/uL (140-400) Neutrophils (%) (Auto) 62% (31-73) Lymphocytes (%) (Auto) 28% (24-48) Monocytes (%) (Auto) 8% (0-9) Eosinophils (%) (Auto) 1% (0-3) Basophils (%) (Auto) 1% (0-3) Neutrophils # (Auto) 6.8x10^3uL (1.8-7.7) Lymphocytes # (Auto) 3.0x10^3/uL (1.0-4.8) Monocytes # (Auto) 0.9x10^3/uL (0.0-1.1) Eosinophils # (Auto) 0.1x10^3/uL (0.0-0.7) Basophils # (Auto) 0.0x10^3/uL (0.0-0.2) Laboratory Tests Test 02/09/17 04:25 White Blood Count 10.9x10^3/uL (4.0-11.0) Red Blood Count 4.58x10^6/uL (3.50-5.40) Hemoglobin 12.5g/dL (12.0-15.5) Hematocrit 39.2% (36.0-47.0) Mean Corpuscular Volume 86fL (79-100) Mean Corpuscular Hemoglobin 27pg (25-35) Mean Corpuscular Hemoglobin Concent 32g/dL (31-37) Red Cell Distribution Width 13.7% (11.5-14.5) Platelet Count 229x10^3/uL (140-400) Neutrophils (%) (Auto) 62% (31-73) Lymphocytes (%) (Auto) 28% (24-48) Monocytes (%) (Auto) 8% (0-9) Eosinophils (%) (Auto) 1% (0-3) Basophils (%) (Auto) 1% (0-3) Neutrophils # (Auto) 6.8x10^3uL (1.8-7.7) Lymphocytes # (Auto) 3.0x10^3/uL (1.0-4.8) Monocytes # (Auto) 0.9x10^3/uL (0.0-1.1) Eosinophils # (Auto) 0.1x10^3/uL (0.0-0.7) Basophils # (Auto) 0.0x10^3/uL (0.0-0.2) Microbiology 02/07/17 Blood Culture - Preliminary, Resulted NO GROWTH AFTER 1 DAY 02/08/17 Gram Stain - Final, Complete Medications Current Medications Morphine Sulfate 4 mg 1X ONCE IV Last administered on 02/07/17 19:57; Start 02/07/17 at 19:30; Stop 02/07/17 at 19:31; Status DC Ketorolac Tromethamine 30 mg 30 mg 1X ONCE IV Last administered on 02/07/17 19:56; Start 02/07/17 at 19:30; Stop 02/07/17 at 19:31; Status DC Clindamycin Phosphate (Cleocin 600 Mg Premix) 50 ml @ 100 mls/hr 1X ONCE IV Last administered on 02/07/17 20:05; Start 02/07/17 at 20:00; Stop 02/07/17 at 20:29; Status DC Ondansetron HCl (Zofran) 4 mg PRN Q8HRS PRN IV NAUSEA/VOMITING Last administered on 02/07/17 21:17; Start 02/07/17 at 20:45; Stop 02/07/17 at 23:32 ; Status DC Morphine Sulfate 4 mg 4 mg PRN Q2HR PRN IV PAIN Last administered on 02/08/17 08:02; Start 02/07/17 at 20:45; Stop 02/08/17 at 15:07; Status DC Sodium Chloride 1,000 ml @ 125 mls/hr Q8H IV Last administered on 02/08/17 12: 38; Start 02/07/17 at 20:38; Stop 02/08/17 at 20:37; Status DC Clindamycin Phosphate (Cleocin 600 Mg Premix) 50 ml @ 100 mls/hr Q8HRS IV Last administered on 02/09/17 04:39; Start 02/08/17 at 06:00 Morphine Sulfate 4 mg PRN Q15MIN PRN IV/SQ PAIN GREATER THAN 3/10 Last administered on 02/07/17 21:17; Start 02/07/17 at 20:45; Stop 02/08/17 at 11:21 ; Status DC Acetaminophen (Tylenol) 325 mg PRN Q6HRS PRN PO MILD PAIN / TEMP Last administered on 02/08/17 14:55; Start 02/07/17 at 23:30 Acetaminophen/ Hydrocodone Bitart (Lortab 5/325) 1 tab PRN Q6HRS PRN PO MODERATE TO SEVERE PAIN Last administered on 02/08/17 11:37; Start 02/07/17 at 23:30; Stop 02/08/17 at 15:06; Status DC Hydralazine HCl (Apresoline) 10 mg PRN Q4HRS PRN IVP ELEVATED BP, SEE COMMENTS ; Start 02/07/17 at 23:30 Ondansetron HCl (Zofran) 4 mg PRN Q8HRS PRN IV NAUSEA/VOMITING; Start 02/07/17 at 23:30 Albuterol Sulfate (Ventolin Neb Soln) 2.5 mg PRN Q4HRS PRN NEB SHORTNESS OF BREATH; Start 02/07/17 at 23:30 Morphine Sulfate 1 mg 1X ONCE IM ; Start 02/08/17 at 05:00; Stop 02/08/17 at 05: 01; Status DC Ondansetron HCl (Zofran) 0.4 mg PRN Q6HRS PRN IV NAUSEA/VOMITING; Start at 09:00; Stop 02/08/17 at 11:22; Status DC Fentanyl Citrate (Fentanyl 2ml Vial) 25 mcg PRN Q5MIN PRN IV MILD PAIN; Start 02/08/17 at 09:00; Stop 02/08/17 at 11:22; Status DC Fentanyl Citrate (Fentanyl 2ml Vial) 50 mcg PRN Q5MIN PRN IV MODERATE PAIN Last administered on 02/08/17 10:22; Start 02/08/17 at 09:00; Stop 02/08/17 at 11: 22; Status DC Morphine Sulfate 1 mg 1 mg PRN Q10MIN PRN IV SEVERE PAIN; Start 02/08/17 at 09: 00; Stop 02/08/17 at 11:22; Status DC Lactated Ringer's (Iv Lactated Ringers) 1,000 ml @ 0 mls/hr Q0M IV ; Start 02/08 at 08:53; Stop 02/08/17 at 11:22; Status DC Lidocaine HCl 2 ml PRN 1X PRN ID PRIOR TO IV START; Start 02/08/17 at 09:00; Stop 02/09/17 at 08:59; Status DC Hydromorphone HCl (Dilaudid) 0.5 mg PRN Q10MIN PRN IV SEV PAIN, Second choice; Start 02/08/17 at 09:00; Stop 02/08/17 at 11:22; Status DC Prochlorperazine Edisylate 5 mg 5 mg PACU PRN PRN IV NAUSEA, MRX1; Start at 09:00; Stop 02/08/17 at 11:16; Status DC Propofol (Diprivan) 20 ml @ As Directed STK-MED ONCE IV ; Start 02/08/17 at 09:04 ; Stop 02/08/17 at 09:05; Status DC Lidocaine HCl (Lidocaine HCl 2% Abboject) 100 mg STK-MED ONCE .ROUTE ; Start 02/08/17 at 09:05; Stop 02/08/17 at 09:06; Status DC Ondansetron HCl (Zofran) 4 mg STK-MED ONCE .ROUTE ; Start 02/08/17 at 09:05; Stop 02/08/17 at 09:06; Status DC Bupivacaine HCl/ Epinephrine Bitart (Sensorcaine-Epi 0.25%-1:[id number] Mpf) 30 ml STK-MED ONCE .ROUTE ; Start 02/08/17 at 09:05; Stop 02/08/17 at 09:06; Status DC Dexamethasone Sodium Phosphate (Decadron) 20 mg STK-MED ONCE .ROUTE ; Start 02/08 at 09:05; Stop 02/08/17 at 09:06; Status DC Midazolam HCl (Versed) 2 mg STK-MED ONCE .ROUTE ; Start 02/08/17 at 09:20; Stop 02/08/17 at 09:21; Status DC Sevoflurane (Ultane) 15 ml STK-MED ONCE IH ; Start 02/08/17 at 09:47; Stop at 09:48; Status DC Acetaminophen/ Hydrocodone Bitart (Lortab 5/325) 2 tab PRN Q4HRS PRN PO MODERATE TO SEVERE PAIN Last administered on 02/09/17 08:40; Start 02/08/17 at 15 :30 Morphine Sulfate 1 mg PRN Q4HRS PRN IV PAIN Last administered on 02/09/17 10:33 ; Start 02/08/17 at 17:00 Vitals/I & O Vital Sign - Last 24 Hours 02/08/17 02/08/17 02/08/17 02/08/17 11:37 12:37 15:10 16:20 Temp 98.3 98.3 Pulse 79 Resp 20 B/P 100/46 Pulse Ox 95 95 97 97 O2 Delivery Room Air Room Air Room Air Room Air 02/08/17 02/08/17 02/08/17 02/08/17 19:15 19:24 20:31 23:35 Temp 98.4 98.3 98.4 98.3 Pulse 70 71 Resp 20 16 20 B/P 110/60 105/64 Pulse Ox 100 100 99 O2 Delivery Room Air Room Air Room Air Room Air 02/09/17 02/09/17 02/09/17 02/09/17 00:35 03:01 04:38 05:23 Resp 14 20 16 14 Pulse Ox 99 99 O2 Delivery Room Air Room Air 02/09/17 02/09/17 02/09/17 02/09/17 07:40 08:00 08:40 09:40 Temp 97.9 97.9 Pulse 71 Resp 20 B/P 107/56 Pulse Ox 100 99 99 O2 Delivery Room Air Room Air Room Air Room Air 02/09/17 10:33 Pulse Ox 99 O2 Delivery Room Air Intake and Output 02/08/17 02/08/17 02/09/17 15:00 23:00 07:00 Intake Total 1530 ml 530 ml Output Total 10 ml Balance -10 ml 1530 ml 530 ml ADITHYA RICE III DO Feb 09, 2017 11:15
[2017-02-09] MEDS ORDERED: MAGNESIUM CITRATE 296 ML SOLUTION. PO ONE (12:15)
[2017-02-09 14:15] VITALS: BP 106/70
[2017-02-09 19:28] VITALS: BP 110/72
[2017-02-09 23:22] VITALS: BP 92/66
[2017-02-10 02:56] VITALS: BP 103/69
[2017-02-10] MEDS: HYDROCODONE/APAP 5/325MG TABLET. PO PRN ×2 (03:18→09:57)
[2017-02-10] MEDS: CLINDAMYCIN 600MG PREMIX 50 ML IV SCH (05:38)
[2017-02-10 07:00] VITALS: BP 136/77
[2017-02-10] MEDS ORDERED: CLIN300C86 PO (08:53)
[2017-02-10] MEDS ORDERED: DOCU-27 PO (08:53)
[2017-02-10] MEDS ORDERED: HYDR-2666 PO (08:53)
--- NOTE | 2017-02-10 09:27 | PDOC ---
SURGICAL PROGRESS NOTE Subjective Patient doing well, no pain. Does not think she can do packing. Vital Signs Vital Signs Date Time Temp Pulse Resp B/P Pulse Ox O2 Delivery O2 Flow Rate FiO2 02/10/17 07:00 98.7 78 16 136/77 98 Room Air 98.7 I&O Intake and Output 02/10/17 07:00 Intake Total 1030 ml Balance 1030 ml Intake Oral 930 ml IV Total 100 ml # Voids 8 PATIENT HAS A OCONNELL: No General: Alert, Oriented X3, Cooperative, No acute distress Skin: Other (Right breast wound dressed, minimal drainage) Labs Laboratory Tests Test 02/09/17 04:25 White Blood Count 10.9x10^3/uL (4.0-11.0) Red Blood Count 4.58x10^6/uL (3.50-5.40) Hemoglobin 12.5g/dL (12.0-15.5) Hematocrit 39.2% (36.0-47.0) Mean Corpuscular Volume 86fL (79-100) Mean Corpuscular Hemoglobin 27pg (25-35) Mean Corpuscular Hemoglobin Concent 32g/dL (31-37) Red Cell Distribution Width 13.7% (11.5-14.5) Platelet Count 229x10^3/uL (140-400) Neutrophils (%) (Auto) 62% (31-73) Lymphocytes (%) (Auto) 28% (24-48) Monocytes (%) (Auto) 8% (0-9) Eosinophils (%) (Auto) 1% (0-3) Basophils (%) (Auto) 1% (0-3) Neutrophils # (Auto) 6.8x10^3uL (1.8-7.7) Lymphocytes # (Auto) 3.0x10^3/uL (1.0-4.8) Monocytes # (Auto) 0.9x10^3/uL (0.0-1.1) Eosinophils # (Auto) 0.1x10^3/uL (0.0-0.7) Basophils # (Auto) 0.0x10^3/uL (0.0-0.2) Problem List Problems Medical Problems: (1) Cellulitis and abscess of other specified site Status: Acute Assessment/Plan Right breast abscess s/p I&D Wound consult of outpatient wound care Problems: CHENG TURNER MD Feb 10, 2017 09:27
[2017-02-10 11:00] VITALS: BP 140/73
--- NOTE | 2017-02-10 15:43 | PDOC3 ---
Discharge Summary Visit Information Date of Admission: Feb 07, 2017 Date of Discharge: Feb 10, 2017 Admitting Diagnosis: cellulitis Final Diagnosis Breast abscess Exercise-induced asthma obese, BMI 31 Problems Medical Problems: (1) Cellulitis and abscess of other specified site Status: Acute Brief Hospital Course Allergies Allergies Coded Allergies Type Severity Reaction Last Updated Verified No Known Drug Allergies 02/08/17 No Vital Signs Vital Signs Date Time Temp Pulse Resp B/P Pulse Ox O2 Delivery O2 Flow Rate FiO2 02/10/17 11:00 98.1 75 16 140/73 99 Room Air 98.1 Lab Results Laboratory Tests Test 02/09/17 04:25 White Blood Count 10.9x10^3/uL (4.0-11.0) Red Blood Count 4.58x10^6/uL (3.50-5.40) Hemoglobin 12.5g/dL (12.0-15.5) Hematocrit 39.2% (36.0-47.0) Mean Corpuscular Volume 86fL (79-100) Mean Corpuscular Hemoglobin 27pg (25-35) Mean Corpuscular Hemoglobin Concent 32g/dL (31-37) Red Cell Distribution Width 13.7% (11.5-14.5) Platelet Count 229x10^3/uL (140-400) Neutrophils (%) (Auto) 62% (31-73) Lymphocytes (%) (Auto) 28% (24-48) Monocytes (%) (Auto) 8% (0-9) Eosinophils (%) (Auto) 1% (0-3) Basophils (%) (Auto) 1% (0-3) Neutrophils # (Auto) 6.8x10^3uL (1.8-7.7) Lymphocytes # (Auto) 3.0x10^3/uL (1.0-4.8) Monocytes # (Auto) 0.9x10^3/uL (0.0-1.1) Eosinophils # (Auto) 0.1x10^3/uL (0.0-0.7) Basophils # (Auto) 0.0x10^3/uL (0.0-0.2) Brief Hospital Course Ms. Pandey is a 21 old admit with right breast pain and swelling with redness. + cellulitis, + abcess taken for I+D by Dr. Crouch, Dc on POD #2 doing well, will f.u outpatient wound care for dressing change cont abx 5 more days Discharge Information Condition at Discharge: Improved Follow Up: Weeks Disposition/Orders: D/C to Home Scheduled Clindamycin Hcl (Clindamycin Hcl) 1 CAP PO TID Docusate Sodium (Colace) 100 MG PO DAILY Scheduled PRN Hydrocodone Bit/Acetaminophen (Hydrocodone-Apap 5-325 ) 1 TAB PO PRN Q4HRS PRN PRN MODERATE TO SEVERE PAIN Patient Instructions Patient Instructions time > 30 min return to work f./u wound care clinic [facility] ALBERTO ORDOÑEZ MD Feb 10, 2017 15:43
== END 2017-02-10 17:50 | disposition home or self-care (01) | DRG 872 ==
LOC: ER 18:18 → 5 NORTH 20:40
PROVIDERS: ADMIT Internal Medicine; ATTEND Internal Medicine
PROC: 0H9T0ZZ Drainage of Right Breast, Open Approach (ICD-10-PCS; principal; 2017-02-08 09:15)
DX: A41.9 Sepsis, unspecified organism (principal); L03.90 Cellulitis, unspecified; N61.1 Abscess of the breast and nipple; E66.9 Obesity, unspecified; K59.00 Constipation, unspecified; Z68.31 Body mass index [BMI] 31.0-31.9, adult; N64.4 Mastodynia; J45.998 Other asthma
CPT/HCPCS: 36415; 80048; 80053; 81025; 85007; 85027; 85651; 86140; 87040; 87071; 87075; 87205; 94250; 96365; 96375; 96376; J1100; J1885; J2250; J2270; J2405; J2704; J3010; J3490; J7030; 99285-25

== ENCOUNTER → 2017-02-11 | Outpatient (CLI) | payer BC ==
[2017-02-10 11:00] VITALS: BP 140/73
[~2017-02-11] MED LIST: CLIN300C86 PO; DOCU-27 PO; HYDR-2666 PO
== END | disposition home or self-care (01) ==
LOC: PMGWOUND 08:54
PROVIDERS: ATTEND Emergency Medicine Undersea and Hyperbaric Medicine
DX: N61.1 Abscess of the breast and nipple (principal); J45.909 Unspecified asthma, uncomplicated; Z87.891 Personal history of nicotine dependence
CPT/HCPCS: 99214

== ENCOUNTER → 2017-02-14 | Outpatient (CLI) | payer BC ==
[2017-02-10 11:00] VITALS: BP 140/73
== END | disposition home or self-care (01) ==
LOC: PMGWOUND 08:16
PROVIDERS: ATTEND Preventive Medicine Undersea and Hyperbaric Medicine
DX: N61.1 Abscess of the breast and nipple (principal); J45.909 Unspecified asthma, uncomplicated; Z87.891 Personal history of nicotine dependence
CPT/HCPCS: 99214

== ENCOUNTER → 2017-02-19 | Outpatient (CLI) | payer BC ==
[2017-02-10 11:00] VITALS: BP 140/73
== END | disposition home or self-care (01) ==
LOC: PMGWOUND 14:01
PROVIDERS: ATTEND Surgery
DX: N61.1 Abscess of the breast and nipple (principal); J45.909 Unspecified asthma, uncomplicated; Z87.891 Personal history of nicotine dependence
CPT/HCPCS: 99213

== ENCOUNTER → 2017-03-05 | Outpatient (CLI) | payer BC ==
[2017-02-10 11:00] VITALS: BP 140/73
== END | disposition home or self-care (01) ==
LOC: PMGWOUND 13:30
PROVIDERS: ATTEND Surgery
DX: N61.1 Abscess of the breast and nipple (principal); J45.909 Unspecified asthma, uncomplicated; Z87.891 Personal history of nicotine dependence
CPT/HCPCS: 99212